=== PATIENT | male | born 1985 | race Caucasian/White ===

== ENCOUNTER 2021-09-07 10:15 | Emergency (ER) | payer OTHER, SELFPAY ==
[2021-09-07 10:28] VITALS: BP 147/81; PULSE 93; RESP 14; TEMP 36.7; O2SAT 96; BMI 30.4
--- NOTE | 2021-09-07 10:38 | ED.SKABFB ---
HPI - Skin/Abscess/Foreign Bdy General Chief complaint: Skin/Abscess/Foreign Body Stated complaint: Cut left hand at work Time Seen by Provider: 09/07/21 10:31 Source: patient Mode of arrival: Ambulatory Limitations: no limitations History of Present Illness HPI narrative: Patient is a 36-year-old male who is here for evaluation of a cut to his left hand. Earlier today while at work he states that he cut it on a sharp piece of metal. Located on the palm of his left hand. Related Data Home Medications Medication Instructions Recorded Confirmed No Known Home Medications 09/07/21 09/07/21 Allergies Allergy/AdvReac Type Severity Reaction Status Date / Time No Known Drug Allergies Allergy Verified 09/07/21 10:30 Review of Systems Musculoskeletal Comments: No numbness or tingling or pain to the left hand Integumentary/Breasts Skin/Breast: Reports system reviewed and no additional complaints, except as documented and Reports as per HPI Neurologic Comments: No change in neurologic status Hematologic/Lymphatic On Anticoagulants: No Patient History Medical History Healthy adult Social History Smoking Status: Never smoker Smoking Status: Never smoker alcohol intake frequency: 0-2 drinks per day Substance Use Type: does not use Exam Initial Vital Signs Initial Vital Signs: Vital Signs Temperature 98.1 F 09/07/21 10:28 Pulse Rate 93 H 09/07/21 10:28 Respiratory Rate 14 09/07/21 10:28 Blood Pressure 147/81 H 09/07/21 10:28 Pulse Oximetry 96 09/07/21 10:28 Cardio Pulses: radial pulses present on the left Skin Other: 4 cm laceration on the palmar aspect of the left hand just proximal to the MCP joint of the ring finger. Neuro Other: Sensation intact neurologically to left hand Extrem Other: Flex and extend both active and passive at the MCP D IP and PIP joints of the left ring finger and little finger and middle finger Psych Appearance: grossly normal and well kempt Procedures Laceration Repair Laceration 1: Site: hand Side (If applicable): left Size (cm): 4 Description: linear Depth: simple, single layer Local Anesthetic: lidocaine 1% and with bicarb Amount of anesthesia used (mL): 8 Pre-repair: wound explored, irrigated extensively and deep structures intact Skin layer closed with: nylon Size (cm): 5-0 Number of sutures: 7 Technique: simple, interrupted Course Orders Ordered: Discontinued Medications Bacitracin (Bacitracin Oint 0.9 Gm Pckt) 1 applic TOP NOW ONE Stop: 09/07/21 11:13 Lidocaine/Sodium Bicarbonate (Lido 1%/Sod Bicarb 8.4% (10ml) 10 Ml Syringe) 10 ml INJ NOW ONE Stop: 09/07/21 10:38 Vital Signs Vital signs: Vital Signs - 8 hr 09/07/21 10:28 Temperature 98.1 F Pulse Rate 93 H Respiratory Rate 14 Blood Pressure 147/81 H Pulse Oximetry 96 MDM - Skin/Abscess/Foreign Bdy MDM Narrative Medical decision making narrative: Patient is neurovascularly intact. Patient appears to not have injured any ligaments nor tendons. Wound was closed as described above. No indication for radiologic studies. We discussed return precautions and follow-up instructions. And care instructions. He expressed understanding agreement Discharge Plan Departure Patient Disposition: Home Clinical Impression: Laceration Instructions: DI for Laceration Repair Activity Restrictions/Additional Instructions: The stitches do need to be removed in 7-10 days. You can keep it covered with a topical antibiotic ointment. He can wash her hands like normal. Return to the emergency department for any new or worsening symptoms Prescriptions: No Action No Known Home Medications 0RF
[2021-09-07] MEDS: BACITRACIN OINT 0.9 GM PCKT 1 APPLIC TOP (11:27)
[2021-09-07] MEDS: LIDO 1%/SOD BICARB 8.4% (10ML) 10 ML SYRINGE INJ (11:28)
[2021-09-07 11:34] VITALS: BP 140/85; PULSE 87; O2SAT 98
== END 2021-09-07 11:36 | disposition home or self-care (01) ==
PROVIDERS: Emergency Provider Emergency Medicine
DX: S61.412A Laceration without foreign body of left hand, initial encounter (principal); W26.9XXA Contact with unspecified sharp object(s), initial encounter; Y99.0 Civilian activity done for income or pay
CPT/HCPCS: 12002; 99283